=== PATIENT | male | born 1965 | race Caucasian/White ===

== ENCOUNTER 2017-04-15 11:11 | Inpatient (IN) | payer OTHER ==
[2017-04-15 18:40] VITALS: BMI 24.1
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
[2017-04-15] MEDS ORDERED: MAG HYDROX/AL HYDROX/SIMETH 30 ML UNIT-DOSE CUP PO PRN (20:41)
[2017-04-15] MEDS ORDERED: MAGNESIUM CITRATE 300 ML BOTTLE PO PRN (20:41)
[2017-04-15] MEDS ORDERED: guaiFENesin/D-METHORPHAN HB 10 ML UNIT-DOSE CUPS PO PRN (20:41)
[2017-04-15] MEDS ORDERED: diazePAM 5 MG TABLET PO ONE (20:41)
[2017-04-15] MEDS ORDERED: MAGNESIUM HYDROX 2400MG/30ML ORAL SUSPENSION 30 ML CUP PO PRN (20:41)
[2017-04-15] MEDS ORDERED: ACETAMINOPHEN 325 MG TABLET (FP) PO PRN (20:41)
[2017-04-15] MEDS ORDERED: diphenhydrAMINE HCL 50 MG CAPSULE PO PRN (20:41)
[2017-04-15] MEDS ORDERED: MENTHOL/PHENOL 1 EACH UD MM PRN (20:41)
[2017-04-15] MEDS ORDERED: LOPERAMIDE HCL 2 MG CAPSULE PO PRN (20:41)
[2017-04-15] MEDS ORDERED: P-EPHED 60MG/TRIPROLIDI 2.5MG TABLET PO PRN (20:41)
[2017-04-15] MEDS ORDERED: NICOTINE POLACRILEX 2 MG GUM BUC PRN (20:41)
[2017-04-15] MEDS ORDERED: cloNIDine HCL 0.1 MG TABLET PO PRN (20:45)
[2017-04-15] MEDS ORDERED: ALBUTEROL SO4 18 GM HFA INHALER IH PRN (20:50)
[2017-04-15] MEDS: THIAMINE HCL 100 MG TABLET (FP) PO SCH (22:30)
[2017-04-15] MEDS: INSULIN SLIDING SCALE (NOVOLOG) 1 VIAL SQ SCH (22:30)
[2017-04-15] MEDS: diazePAM 5 MG TABLET PO SCH (22:31)
[2017-04-15] MEDS: INSULIN DETEMIR 100 UNITS/ML MDV SQ SCH (22:32)
[2017-04-15] MEDS ORDERED: INSULIN (NOVOLOG) ASPART 100 UNITS/ML 10ML VIAL ONE (23:13)
[2017-04-15 23:35] LABS: URINE APPEARANCE CLEAR; URINE BILIRUBIN NEGATIVE (NEGATIVE); URINE BLOOD NEGATIVE (NEGATIVE); URINE COLOR LTYELLOW; URINE GLUCOSE (UA) 3+ (NEGATIVE); URINE KETONE NEGATIVE (NEGATIVE); URINE NITRITE NEGATIVE (NEGATIVE); URINE PROTEIN NEGATIVE (NEGATIVE); URINE UROBILINOGEN NEGATIVE mg/dL (0.2-1.0)
[2017-04-16] MEDS: diazePAM 5 MG TABLET PO SCH ×3 (05:43→22:36)
[2017-04-16] MEDS: metFORMIN HCL 500 MG TABLET (FP) PO SCH ×2 (06:33→17:31)
[2017-04-16] MEDS: INSULIN SLIDING SCALE (NOVOLOG) 1 VIAL SQ SCH ×4 (07:41→22:37)
[2017-04-16] MEDS ORDERED: METHADONE HCL 10 MG TABLET PO SCH (08:45)
[2017-04-16] MEDS: diazePAM 5 MG TABLET PO PRN (10:37)
[2017-04-16] MEDS: PRENATAL VITAMINS W/ FOLIC ACID TABLET (FP) PO SCH (10:37)
[2017-04-16] MEDS: NICOTINE 14 MG/24 HOURS TOPICAL PATCH TD SCH (10:37)
[2017-04-16] MEDS: ASPIRIN 81 MG CHEWABLE TABLETS PO SCH (10:37)
[2017-04-16 11:03] LABS: MCH 28.2 pg (25.7-33.7); MCHC 33.1 g/dl (32.0-35.9); MEAN CELL VOLUME 85.2 fl (80-96); MEAN PLT VOLUME 6.9 fl (7.5-11.1); PLATELET COUNT 255 K/MM3 (134-434); RDW 13.6 % (11.9-15.9); WHITE BLOOD COUNT 6.9 K/mm3 (4.0-10.0)
[2017-04-16 11:14] LABS: ALBUMIN 2.9 g/dl (3.4-5.0); ANION GAP 8 (8-16); CALCIUM 8.5 mg/dL (8.5-10.1); CO2 33 mmol/L (21-32); GLUCOSE,RANDOM 273 mg/dL (74-106)
[2017-04-16 11:18] LABS: ALK PHOS 125 U/L (45-117); BILIRUBIN,TOTAL 0.3 mg/dL (0.2-1.0); CREATININE 0.6 mg/dL (0.7-1.3); SGOT/AST 7 U/L (15-37); SGPT/ALT 17 U/L (12-78); TOT PROT 6.3 g/dl (6.4-8.2)
[2017-04-16 11:52] LABS: URINE LEUK ESTERASE Negative (NEGATIVE)
[2017-04-16] MEDS ORDERED: INSULIN (NOVOLOG) ASPART 100 UNITS/ML 10ML VIAL ONE ×3 (12:12→21:49)
--- NOTE | 2017-04-16 14:22 | CONSULT ---
[facility] Psychiatric Consult - Data Date of interview: 04/16/17 Admission source: [facility] Identifying data: First admission to [facility] for this 51 y/o male seeking detox teatment on for alcohol,cocaine,heroin and xanax dependence.Patient is single,a father of four,homeless,disabled and supported on SSD benefits. Substance Abuse History: Discussed with the patient.Addictions are confirmed. Smoking Cessation. Smoking history: Current every day smoker. Have you smoked in the past 12 months: Yes. Aproximately how many cigarettes per day: 5. Cigars Per Day: 0. Hx Chewing Tobacco Use: No. Initiated information on smoking cessation: Yes. 'Breaking Loose' booklet given: 04/15/17. - Substance & Tx. History. Hx Alcohol Use: Yes. Hx Substance Use: Yes. Substance Use Type : Alcohol, Cocaine, Heroin, Tranquilizers. Hx Substance Use Treatment: Yes ( 2014). - Substances Abused. Alprazolam (Xanax). Route: Oral. Frequency: Daily. Amount used: 2 MG. Age of first use: 47. Date of Last Use: 04/15/17. Alcohol. Route: Oral. Frequency: Daily. Amount used: 40OZX5 BEER. Age of first use: 18. Date of Last Use: 04/15/17 Medical History: Anemia,lower back pain,neuropathy,past history of withdrawal seizures,diabetes mellitus,COPD and dyslipidemia. Psychiatric History: No reported history of psychiatric hospitalizations.Mr Lara is currently on methadone maintenance at the [facility] (100 mg/ day).Prescibed xanax by a private psychiatrist based in the [place].Diagnosed with Anxiety Disorder.No history of suicide attempts. Physical/Sexual Abuse/Trauma History: No history. Additional Comment: Urine Drug Screen Results: EDIE-Cocaine, OPI-Opiates, BZO- Benzodiazepines, MTD-Methadone.Noted. Mental Status Exam - Mental Status Exam Alert and Oriented to: Time, Place, Person Cognitive Function: Good Patient Appearance: Well Groomed (tattoos on forearms) Mood: Hopeful, Euthymic Affect: Appropriate, Normal Range Patient Behavior: Fatigued, Cooperative Speech Pattern: Clear Voice Loudness: Normal Thought Process: Intact, Goal Oriented Thought Disorder: Not Present Hallucinations: Denies Suicidal Ideation: Denies Homicidal Ideation: Denies Insight/Judgement: Poor Sleep: Well Appetite: Good Gait/Station: Other (walks with a cane) Psychiatric Findings - Problem List ([place] 1, 2,3) (1) Alcohol dependence with uncomplicated withdrawal Current Visit: Yes Status: Acute (2) Opioid dependence on agonist therapy Current Visit: Yes Status: Acute (3) Cocaine dependence Current Visit: Yes Status: Acute (4) Benzodiazepine dependence Current Visit: Yes Status: Acute (5) Nicotine dependence Current Visit: Yes Status: Acute (6) Substance induced mood disorder Current Visit: Yes Status: Acute (7) Anemia Current Visit: Yes Status: Chronic Qualifiers: Anemia type: B12 deficiency Vitamin B12 deficiency anemia type: intrinsic factor deficiency Qualified Code(s): D51.0 - Vitamin B12 deficiency anemia due to intrinsic factor deficiency; D51.0 - Vitamin B12 deficiency anemia due to intrinsic factor deficiency Comment: VITAMIN B12 IM MONTHLY LAST IM 03/20/17 (8) COPD (chronic obstructive pulmonary disease) Current Visit: Yes Status: Chronic Qualifiers: COPD type: emphysema Emphysema type: unilateral Qualified Code(s ): J43.0 - Unilateral pulmonary emphysema [MacLeod's syndrome]; J43.0 - Unilateral pulmonary emphysema [MacLeod's syndrome]; J43.0 - Unilateral pulmonary emphysema [MacLeod's syndrome]; J43.0 - Unilateral pulmonary emphysema [MacLeod's syndrome] (9) Diabetes mellitus type II, non insulin dependent Current Visit: Yes Status: Chronic Comment: NONE COMPLIANCE MULTIPLE GLUCOSE SERUM ELEVATION (10) Hypertension Current Visit: Yes Status: Chronic Qualifiers: Hypertension type: essential hypertension Qualified Code(s): I10 - Essential (primary) hypertension; I10 - Essential (primary) hypertension; I10 - Essential (primary) hypertension (11) Neuropathy Current Visit: Yes Status: Chronic Comment: DIABETES NEUROPATHY (12) Use of cane as ambulatory aid Current Visit: Yes Status: Chronic - Initial Treatment Plan Initial Treatment Plan: Psychoeducation.Detoxification.Observation.
--- NOTE | 2017-04-16 19:44 | PN ---
[facility] CIWA - CIWA Score Nausea/Vomitin-No Nausea/No Vomiting Muscle Tremors: 3 Anxiety: 4-Mod. Anxious/Guarded Agitation: 3 Paroxysmal Sweats: No Perspiration Orientation: 4Disoriented Place/Person Tacttile Disturbances: 0-None Auditory Disturbances: 1-Very Mild Visual Disturbances: 2-Mild Sensitivity Headache: 0-None Present CIWA-Ar Total Score: 17 S Progress Note (SOAP) Subjective: Interrupted Sleep, Body Aches, Anxious, Tremors. Objective: PT. A & O X 2 (DISORIENTED ABOUT CURRENT LOCATION). PT. OBSERVED AMBULATING ON UNIT WITH ASSISTANCE OF A CANE. NO ACUTE DISTRESS. PT. DENIES CHEST PAIN. 04/16/17 19:40 Vital Signs Temperature 98.1 F 04/16/17 18:45 Pulse Rate 71 04/16/17 18:45 Respiratory Rate 19 04/16/17 18:45 Blood Pressure 162/80 04/16/17 18:45 O2 Sat by Pulse Oximetry (%) Laboratory Tests 04/15/17 04/15/17 04/16/17 22:29 23:00 05:44 WBC RBC Hgb Hct MCV MCH MCHC RDW Plt Count MPV Sodium Potassium Chloride Carbon Dioxide Anion Gap BUN Creatinine Creat Clearance w eGFR POC Glucometer 387 233 Random Glucose Calcium Total Bilirubin AST ALT Alkaline Phosphatase Total Protein Albumin Urine Color Ltyellow Urine Appearance Clear Urine pH 6.0 Ur Specific [place] 1.010 Urine Protein Negative Urine Glucose (UA) 3+ H Urine Ketones Negative Urine Blood Negative Urine Nitrite Negative Urine Bilirubin Negative Urine Urobilinogen Negative Ur Leukocyte Esterase Negative RPR Titer 04/16/17 04/16/17 04/16/17 08:00 08:00 08:00 WBC 6.9 RBC 4.70 Hgb 13.3 Hct 40.1 MCV 85.2 MCH 28.2 MCHC 33.1 RDW 13.6 Plt Count 255 MPV 6.9 L Sodium 141 Potassium 3.5 Chloride 100 Carbon Dioxide 33 H Anion Gap 8 BUN 8 Creatinine 0.6 L Creat Clearance w eGFR > 60 POC Glucometer Random Glucose 273 H Calcium 8.5 Total Bilirubin 0.3 AST 7 L ALT 17 Alkaline Phosphatase 125 H Total Protein 6.3 L Albumin 2.9 L Urine Color Urine Appearance Urine pH Ur Specific [place] Urine Protein Urine Glucose (UA) Urine Ketones Urine Blood Urine Nitrite Urine Bilirubin Urine Urobilinogen Ur Leukocyte Esterase RPR Titer Nonreactive 04/16/17 04/16/17 12:09 16:33 WBC RBC Hgb Hct MCV MCH MCHC RDW Plt Count MPV Sodium Potassium Chloride Carbon Dioxide Anion Gap BUN Creatinine Creat Clearance w eGFR POC Glucometer 388 313 Random Glucose Calcium Total Bilirubin AST ALT Alkaline Phosphatase Total Protein Albumin Urine Color Urine Appearance Urine pH Ur Specific [place] Urine Protein Urine Glucose (UA) Urine Ketones Urine Blood Urine Nitrite Urine Bilirubin Urine Urobilinogen Ur Leukocyte Esterase RPR Titer LABS NOTED. Assessment: 04/16/17 19:41 WITHDRAWAL SYMPTOMS. Plan: CONTINUE DETOX.
[2017-04-16] MEDS: THIAMINE HCL 100 MG TABLET (FP) PO SCH (22:36)
[2017-04-16] MEDS: INSULIN DETEMIR 100 UNITS/ML MDV SQ SCH (22:37)
[2017-04-17] MEDS ORDERED: METHADONE HCL 10 MG TABLET ONE (04:31)
[2017-04-17] MEDS ORDERED: METHADONE HCL 40 MG DISPERSABLE TABLET ONE (04:32)
[2017-04-17] MEDS: diazePAM 5 MG TABLET PO PRN (05:34)
[2017-04-17] MEDS: METHADONE 80 MG, METHADONE 20 MG PO SCH (05:34)
[2017-04-17] MEDS: INSULIN SLIDING SCALE (NOVOLOG) 1 VIAL SQ SCH ×4 (06:06→21:52)
[2017-04-17] MEDS: metFORMIN HCL 500 MG TABLET (FP) PO SCH ×2 (06:19→16:30)
[2017-04-17] MEDS: NICOTINE 14 MG/24 HOURS TOPICAL PATCH TD SCH (10:26)
[2017-04-17] MEDS: diazePAM 5 MG TABLET PO SCH ×2 (10:26→21:51)
[2017-04-17] MEDS: PRENATAL VITAMINS W/ FOLIC ACID TABLET (FP) PO SCH (10:26)
[2017-04-17] MEDS: ASPIRIN 81 MG CHEWABLE TABLETS PO SCH (10:26)
--- NOTE | 2017-04-17 11:42 | EKG ---
Test Reason : Blood Pressure : / mmHG Vent. Rate : 068 BPM Atrial Rate : 068 BPM P-R Int : 162 ms QRS Dur : 078 ms QT Int : 418 ms P-R-T Axes : 034 000 -07 degrees QTc Int : 444 ms SINUS RHYTHM WITH MARKED SINUS ARRHYTHMIA MODERATE VOLTAGE CRITERIA FOR LVH, MAY BE NORMAL VARIANT WHEN COMPARED WITH ECG OF 15-APR-2017 22:16, T WAVE AMPLITUDE HAS INCREASED IN ANTERIOR LEADS QT HAS SHORTENED Confirmed by LILLIAN ROLDAN MD ([id number]) on 04/17/2017 11:42:19 AM Referred By: Confirmed By:LILLIAN ROLDAN MD
--- NOTE | 2017-04-17 11:43 | EKG ---
Test Reason : Blood Pressure : / mmHG Vent. Rate : 075 BPM Atrial Rate : 075 BPM P-R Int : 174 ms QRS Dur : 082 ms QT Int : 444 ms P-R-T Axes : 066 010 006 degrees QTc Int : 495 ms NORMAL SINUS RHYTHM POSSIBLE LEFT ATRIAL ENLARGEMENT LEFT VENTRICULAR HYPERTROPHY PROLONGED QT ABNORMAL ECG NO PREVIOUS ECGS AVAILABLE Confirmed by LILLIAN ROLDAN MD ([id number]) on 04/17/2017 11:42:34 AM Referred By: Confirmed By:LILLIAN ROLDAN MD
[2017-04-17] MEDS ORDERED: INSULIN (NOVOLOG) ASPART 100 UNITS/ML 10ML VIAL ONE ×3 (12:16→21:46)
--- NOTE | 2017-04-17 13:59 | PN ---
[facility] CIWA - CIWA Score Nausea/Vomitin-No Nausea/No Vomiting Muscle Tremors: 4-Moderate,w/Arms Extend Anxiety: 4-Mod. Anxious/Guarded Agitation: 4-Moderately Restless Paroxysmal Sweats: 1-Minimal Palms Moist Orientation: 0-Oriented Tacttile Disturbances: 3-Moderate Itch/Numb/Burn Auditory Disturbances: 0-None Visual Disturbances: 0-None Headache: 0-None Present CIWA-Ar Total Score: 16 [facility] Progress Note (SOAP) Subjective: ANXIETY,SWEATS,IRRITABILITY,C/O HX NEUROPATHY LOWER LEGS. Objective: 04/17/17 13:58 Vital Signs Temperature 98.2 F 04/17/17 13:43 Pulse Rate 93 H 04/17/17 13:43 Respiratory Rate 20 04/17/17 13:43 Blood Pressure 174/91 04/17/17 13:43 O2 Sat by Pulse Oximetry (%) Laboratory Last Values WBC 6.9 K/mm3 (4.0-10.0) 04/16/17 08:00 RBC 4.70 M/mm3 (4.00-5.60) 04/16/17 08:00 Hgb 13.3 GM/dL (11.7-16.9) 04/16/17 08:00 Hct 40.1 % (35.4-49) 04/16/17 08:00 MCV 85.2 fl (80-96) 04/16/17 08:00 MCH 28.2 pg (25.7-33.7) 04/16/17 08:00 MCHC 33.1 g/dl (32.0-35.9) 04/16/17 08:00 RDW 13.6 % (11.9-15.9) 04/16/17 08:00 Plt Count 255 K/MM3 (134-434) 04/16/17 08:00 MPV 6.9 fl (7.5-11.1) L 04/16/17 08:00 Sodium 141 mmol/L (136-145) 04/16/17 08:00 Potassium 3.5 mmol/L (3.5-5.1) 04/16/17 08:00 Chloride 100 mmol/L (98-107) 04/16/17 08:00 Carbon Dioxide 33 mmol/L (21-32) H 04/16/17 08:00 Anion Gap 8 (8-16) 04/16/17 08:00 BUN 8 mg/dL (7-18) 04/16/17 08:00 Creatinine 0.6 mg/dL (0.7-1.3) L 04/16/17 08:00 Creat Clearance w eGFR > 60 (>60) 04/16/17 08:00 POC Glucometer 335 UNITS (()) 04/17/17 12:13 Random Glucose 273 mg/dL (74-106) H 04/16/17 08:00 Calcium 8.5 mg/dL (8.5-10.1) 04/16/17 08:00 Total Bilirubin 0.3 mg/dL (0.2-1.0) 04/16/17 08:00 AST 7 U/L (15-37) L 04/16/17 08:00 ALT 17 U/L (12-78) 04/16/17 08:00 Alkaline Phosphatase 125 U/L (45-117) H 04/16/17 08:00 Total Protein 6.3 g/dl (6.4-8.2) L 04/16/17 08:00 Albumin 2.9 g/dl (3.4-5.0) L 04/16/17 08:00 Urine Color Ltyellow 04/15/17 23:00 Urine Appearance Clear 04/15/17 23:00 Urine pH 6.0 (5.0-8.0) 04/15/17 23:00 Ur Specific [place] 1.010 (1.005-1.025) 04/15/17 23:00 Urine Protein Negative (NEGATIVE) 04/15/17 23:00 Urine Glucose (UA) 3+ (NEGATIVE) H 04/15/17 23:00 Urine Ketones Negative (NEGATIVE) 04/15/17 23:00 Urine Blood Negative (NEGATIVE) 04/15/17 23:00 Urine Nitrite Negative (NEGATIVE) 04/15/17 23:00 Urine Bilirubin Negative (NEGATIVE) 04/15/17 23:00 Urine Urobilinogen Negative mg/dL (0.2-1.0) 04/15/17 23:00 Ur Leukocyte Esterase Negative (NEGATIVE) 04/15/17 23:00 RPR Titer Nonreactive (NONREACTIVE) 04/16/17 08:00 Assessment: 04/17/17 13:58 WITHDRAWAL SX Plan: CONTINUE DETOX
[2017-04-17] MEDS ORDERED: cloNIDine HCL 0.1 MG TABLET PO PRN (14:08)
[2017-04-17] MEDS: THIAMINE HCL 100 MG TABLET (FP) PO SCH (21:51)
[2017-04-17] MEDS: INSULIN DETEMIR 100 UNITS/ML MDV SQ SCH (21:55)
[2017-04-17] MEDS ORDERED: ENALAPRIL MALEATE 10 MG TABLET (FP) PO SCH (22:00)
[2017-04-18] MEDS ORDERED: METHADONE HCL 40 MG DISPERSABLE TABLET ONE (04:06)
[2017-04-18] MEDS ORDERED: METHADONE HCL 10 MG TABLET ONE (04:06)
[2017-04-18] MEDS: METHADONE 80 MG, METHADONE 20 MG PO SCH (05:28)
[2017-04-18] MEDS: INSULIN SLIDING SCALE (NOVOLOG) 1 VIAL SQ SCH (06:20)
[2017-04-18] MEDS: metFORMIN HCL 500 MG TABLET (FP) PO SCH (06:21)
--- NOTE | 2017-04-18 09:16 | DS ---
[facility] Detox Discharge Summary Admission Date: 04/15/17 Discharge Date: 04/18/17 - History Additional Comments: PT DECLINED TO CONTINUE WITH DETOX DESPITE ALL EFFORTS TO ENCOURAGE TREATMENT STATING "I HAVE THINGS TO DO". ALERT O X 3. NAD. Pertinent Past History: ANEMIA COPD HTN DM NEUROPATHY USE OF CANE AMBULATORY AID - Physical Exam Results Vital Signs: Vital Signs Temperature 97.9 F 04/18/17 06:35 Pulse Rate 88 04/18/17 06:35 Respiratory Rate 18 04/18/17 06:35 Blood Pressure 142/89 04/18/17 06:35 O2 Sat by Pulse Oximetry (%) Pertinent Admission Physical Exam Findings: WITHDRAWAL SX Laboratory Last Values WBC 6.9 K/mm3 (4.0-10.0) 04/16/17 08:00 RBC 4.70 M/mm3 (4.00-5.60) 04/16/17 08:00 Hgb 13.3 GM/dL (11.7-16.9) 04/16/17 08:00 Hct 40.1 % (35.4-49) 04/16/17 08:00 MCV 85.2 fl (80-96) 04/16/17 08:00 MCH 28.2 pg (25.7-33.7) 04/16/17 08:00 MCHC 33.1 g/dl (32.0-35.9) 04/16/17 08:00 RDW 13.6 % (11.9-15.9) 04/16/17 08:00 Plt Count 255 K/MM3 (134-434) 04/16/17 08:00 MPV 6.9 fl (7.5-11.1) L 04/16/17 08:00 Sodium 141 mmol/L (136-145) 04/16/17 08:00 Potassium 3.5 mmol/L (3.5-5.1) 04/16/17 08:00 Chloride 100 mmol/L (98-107) 04/16/17 08:00 Carbon Dioxide 33 mmol/L (21-32) H 04/16/17 08:00 Anion Gap 8 (8-16) 04/16/17 08:00 BUN 8 mg/dL (7-18) 04/16/17 08:00 Creatinine 0.6 mg/dL (0.7-1.3) L 04/16/17 08:00 Creat Clearance w eGFR > 60 (>60) 04/16/17 08:00 POC Glucometer 144 UNITS (()) 04/18/17 05:26 Random Glucose 273 mg/dL (74-106) H 04/16/17 08:00 Calcium 8.5 mg/dL (8.5-10.1) 04/16/17 08:00 Total Bilirubin 0.3 mg/dL (0.2-1.0) 04/16/17 08:00 AST 7 U/L (15-37) L 04/16/17 08:00 ALT 17 U/L (12-78) 04/16/17 08:00 Alkaline Phosphatase 125 U/L (45-117) H 04/16/17 08:00 Total Protein 6.3 g/dl (6.4-8.2) L 04/16/17 08:00 Albumin 2.9 g/dl (3.4-5.0) L 04/16/17 08:00 Urine Color Ltyellow 04/15/17 23:00 Urine Appearance Clear 04/15/17 23:00 Urine pH 6.0 (5.0-8.0) 04/15/17 23:00 Ur Specific [place] 1.010 (1.005-1.025) 04/15/17 23:00 Urine Protein Negative (NEGATIVE) 04/15/17 23:00 Urine Glucose (UA) 3+ (NEGATIVE) H 04/15/17 23:00 Urine Ketones Negative (NEGATIVE) 04/15/17 23:00 Urine Blood Negative (NEGATIVE) 04/15/17 23:00 Urine Nitrite Negative (NEGATIVE) 04/15/17 23:00 Urine Bilirubin Negative (NEGATIVE) 04/15/17 23:00 Urine Urobilinogen Negative mg/dL (0.2-1.0) 04/15/17 23:00 Ur Leukocyte Esterase Negative (NEGATIVE) 04/15/17 23:00 RPR Titer Nonreactive (NONREACTIVE) 04/16/17 08:00 - Treatment Hospital Course: Discharged Condition Good - Medication Discharge Medications: Ambulatory Orders Aspirin [ASA -] 81 mg PO DAILY 04/15/17 Clonidine HCl [Catapres -] 0.3 mg PO DAILY 04/15/17 Metformin HCl [Glucophage -] 1,000 mg PO BID 04/15/17 Enalapril/Hydrochlorothiazide [Vaseretic 10-25 mg Tablet] 1 tab PO DAILY - Diagnosis (1) Alcohol dependence with uncomplicated withdrawal Current Visit: Yes Status: Acute (2) COPD (chronic obstructive pulmonary disease) Current Visit: Yes Status: Chronic Qualifiers: COPD type: emphysema Emphysema type: unilateral Qualified Code(s ): J43.0 - Unilateral pulmonary emphysema [MacLeod's syndrome]; J43.0 - Unilateral pulmonary emphysema [MacLeod's syndrome]; J43.0 - Unilateral pulmonary emphysema [MacLeod's syndrome]; J43.0 - Unilateral pulmonary emphysema [MacLeod's syndrome] (3) Diabetes mellitus type II, non insulin dependent Current Visit: Yes Status: Chronic (4) Hypertension Current Visit: Yes Status: Chronic Qualifiers: Hypertension type: essential hypertension Qualified Code(s): I10 - Essential (primary) hypertension; I10 - Essential (primary) hypertension; I10 - Essential (primary) hypertension (5) Neuropathy Current Visit: Yes Status: Chronic (6) Use of cane as ambulatory aid Current Visit: Yes Status: Chronic - AMA Did Patient Leave Against Medical Advice: Yes (AMA)
[2017-04-18 09:56] VITALS: BP 162/86; PULSE 89; TEMP 97
[2017-04-18] MEDS ORDERED: amLODIPine BESYLATE 10 MG TABLET (FP) PO SCH (10:00)
[2017-04-18] MEDS ORDERED: ENALAPRIL MALEATE 10 MG TABLET (FP) PO SCH (10:00)
[2017-04-18] MEDS ORDERED: HYDROCHLOROTHIAZIDE 25 MG TABLET (FP) PO SCH (10:00)
[2017-04-19] MEDS ORDERED: diazePAM 5 MG TABLET PO SCH (10:00)
== END 2017-04-18 09:33 | disposition left against medical advice (07) | DRG 770 ==
LOC: YASAS 11:11 → Y3N 21:05
PROVIDERS: ADMIT Internal Medicine; ATTEND Internal Medicine
PROC: HZ2ZZZZ Detoxification Services for Substance Abuse Treatment (ICD-10-PCS; principal; 2017-04-14)
DX: F11.20 Opioid dependence, uncomplicated (principal); F10.230 Alcohol dependence with withdrawal, uncomplicated; F14.20 Cocaine dependence, uncomplicated; F17.210 Nicotine dependence, cigarettes, uncomplicated; F19.24 Other psychoactive substance dependence with psychoactive substance-induced mood disorder; I10 Essential (primary) hypertension; J43.0 Unilateral pulmonary emphysema [MacLeod's syndrome]; E11.9 Type 2 diabetes mellitus without complications; Z79.84 Long term (current) use of oral hypoglycemic drugs; D51.0 Vitamin B12 deficiency anemia due to intrinsic factor deficiency; G62.9 Polyneuropathy, unspecified; R26.89 Other abnormalities of gait and mobility; Z99.89 Dependence on other enabling machines and devices
CPT/HCPCS: 36415; 80053; 81003; 85027; 86593; 93005; 93010

== ENCOUNTER 2019-04-11 11:16 | Inpatient (IN) | payer OTHER ==
[2019-04-11 12:31] VITALS: BMI 31.6
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
--- NOTE | 2019-04-11 21:26 | HP ---
CIWA Score Nausea/Vomitin-No Nausea/No Vomiting Muscle Tremors: None Anxiety: 1-Mildly Anxious Agitation: 1-Slight > Activity Paroxysmal Sweats: 3 Orientation: 3-Disoriented Date>2 days Tacttile Disturbances: 2-Mild Itch/Numbness/Burn Auditory Disturbances: 0-None Visual Disturbances: 0-None Headache: 4-Moderately Severe CIWA-Ar Total Score: 14 - Admission Criteria OASAS Guidelines: Admission for Medically Managed Detox: Requires at least one of the followin. CIWA greater than 12 2. Seizures within the past 24 hours 3. Delirium tremens within the past 24 hours 4. Hallucinations within the past 24 hours 5. Acute intervention needed for co occurring medical disorder 6. Acute intervention needed for co occurring psychiatric disorder 7. Severe withdrawal that cannot be handled at a lower level of care (continued vomiting, continued diarrhea, abnormal vital signs) requiring intravenous medication and/or fluids 8. Patient presents the following: CIWA greater than 12 Admission Criteria Met: Admission criteria met Admitting History and Physical - Smoking History Smoking history: Current every day smoker Have you smoked in the past 12 months: Yes Aproximately how many cigarettes per day: 5 - Alcohol/Substance Use Hx Alcohol Use: Yes Admission ROS [facility] Chief Complaint: SEEKING DETOX FROM [facility] Allergies/Adverse Reactions: Allergies Allergy/AdvReac Type Severity Reaction Status Date / Time No Known Allergies Allergy Verified 04/15/17 20:14 History of Present Illness: HERE FOR [facility] DETOX. CLIENT I REFERRED BY HIS OUTPATIENT CLINIC MERGED WITH [facility] WHERE HE IS ON METHADONE. CLIENT REPORTS LDM TODAY 100MG. HE RETURNS FROM [facility] AFTER BEING SENT THERE FOR R/O NEW CVA AND HEAD CT FOR RECENT FALL SUSTAINING AN ABRASION TO HIS FACE.HE HAS SINCE BEEN CLEARED . NEGATIVE HEAD CT NOTED. HE PRESENTS A/O X3 WITH SLURRED SPEECH R/T HX/O OLD CVA WITH RIGHT SIDED WEAKNESS AMBUATES WITH CANE. PRESENTS WITH C/O WITHDRAWAL SX'S. + CIWA, + HX/O BLACK OUTS. HE REPORTS DAILY XANAX USE AND ONGOING HEROIN USE. DENIES HX/O DRUG OVERDOSE, SEIZURES, IVDU AVH. REPORTS LONGEST CLEAN TIME 3 YEARS. DENIES ANY IN THE PAST YEAR. HOMELESS, UNEMPLOYED, DENIES LEGALS. Exam Limitations: Clinical Condition (PERIODS OF DROWSINESS BUT AROUSABLE), Physical Impairment (RIGHT SIDED WEAKNESS,) - Ebola screening Have you traveled outside of the country in the last 21 days: No Have you had contact with anyone from an Ebola affected area: No Have you been sick,other than usual withdrawal symptoms: No Do you have a fever: No - Review of Systems Constitutional: Chills, Loss of Appetite, Malaise, Night Sweats EENT: reports: Dental Problems (MISSING TEETH/ PARTIAL DENTURES) Respiratory: reports: No Symptoms reported Cardiac: reports: No Symptoms Reported GI: reports: Poor Appetite, Poor Fluid Intake : reports: No Symptoms Reported Musculoskeletal: reports: Back Pain, Joint Pain Integumentary: reports: No Symptoms Reported Neuro: reports: Headache (HX/O), Numbness (CHRONIC), Unsteady Gait (R/T CVA W/ RIGHT SIDED WEAKNESS), Other (BLACK OUTS) Endocrine: reports: Other ( DM ON MEDS) Hematology: reports: No Symptoms Reported Psychiatric: reports: Anxious, Depressed (DENIES SI/HI) Other Systems: Reviewed and Negative Patient History - Patient Medical History Hx Anemia: Yes Hx Asthma: No Hx Chronic Obstructive Pulmonary Disease (COPD): Yes Hx Cancer: No Hx Cardiac Disorders: No Hx Congestive Heart Failure: No Hx Hypertension: Yes Hx Hypercholesterolemia: Yes Hx Pacemaker: No HX Cerebrovascular Accident: Yes (2018 W/ RIGHT SIDED WEAKNESS) Hx Seizures: No Hx Dementia: No Hx Diabetes: Yes Hx Gastrointestinal Disorders: No Hx Liver Disease: No Hx Genitourinary Disorders: No Hx Sexually Transmitted Disorders: No Hx Renal Disease (ESRD): No Hx Thyroid Disease: No Hx Human Immunodeficiency Virus (HIV): No Hx Hepatitis C: No Hx Depression: Yes Hx Suicide Attempt: No Hx Bipolar Disorder: No Hx Schizophrenia: No - Patient Surgical History Past Surgical History: No Hx Neurologic Surgery: No Hx Cataract Extraction: No Hx Cardiac Surgery: No Hx Lung Surgery: No Hx Breast Surgery: No Hx Breast Biopsy: No Hx Abdominal Surgery: No Hx Appendectomy: No Hx Cholecystectomy: No Hx Genitourinary Surgery: No Hx Section: No Hx Orthopedic Surgery: No Anesthesia Reaction: No - PPD History Previous Implant?: Yes Documented Results: Negative w/proof Implanted On Prior R Admission?: Yes Date: 04/17/17 Results: 0MM PPD to be Administered?: Yes - Smoking Cessation Smoking history: Current every day smoker Have you smoked in the past 12 months: Yes Aproximately how many cigarettes per day: 5 Cigars Per Day: 0 Hx Chewing Tobacco Use: No Initiated information on smoking cessation: Yes 'Breaking Loose' booklet given: 04/11/19 - Substance & Tx. History Hx Alcohol Use: No Hx Substance Use: Yes Substance Use Type: Opiates, Prescribed (MTD), Tranquilizers (XANAX) Hx Substance Use Treatment: Yes ([facility]) - Substances abused Heroin Substance route: Inhalation Frequency: Daily Amount used: 3 bags Age of first use: 18 Date of last use: 04/11/19 Alcohol Substance route: Oral Frequency: 1-2 times per week Amount used: 2 22 oz beers Age of first use: 20 Date of last use: 04/10/19 Alprazolam (Xanax) Substance route: Oral Frequency: Daily Amount used: 6mg Age of first use: 50 Date of last use: 04/11/19 Admission Physical Exam S - Vital Signs Vital Signs: Vital Signs - 24 hr 04/11/19 04/11/19 12:18 20:53 Temperature 97.1 F L 96.8 F L Pulse Rate 68 64 Respiratory 18 18 Rate Blood Pressure 182/88 H 157/86 - Physical General Appearance: Yes: Mild Distress, Obese (DROWSINESS) HEENTM: Yes: Normocephalic, Normal Voice, MARSHA, Pharynx Normal, Other (MISSING TEETH/POOR DENTITION) Respiratory: Yes: Chest Non-Tender, Lungs Clear, Normal Breath Sounds, No Respiratory Distress, No Accessory Muscle Use Neck: Yes: No masses,lesions,Nodules, Supple, Trachea in good position Breast: Yes: Breasts Symetrical, No Discharge Cardiology: Yes: Regular Rhythm, Regular Rate, S1, S2 Abdominal: Yes: Normal Bowel Sounds, Non Tender, Soft, Protuberent Genitourinary: Yes: Within Normal Limits Back: Yes: Normal Inspection Musculoskeletal: Yes: Other (UNSTEADY GAIT AND BALANCE. AMBUALTES W/ WALKER) Extremities: Yes: Non-Tender, Tremors, Coldness (BLE) Neurological: Yes: Alert (WITH PERIODS OF DROWSINESS), Numbness (REPORTED TO BLE ), Depressed Affect, Other (SLURRED SPEECH RIGHT SIDED WEAKNESS) Integumentary: Yes: Dry, Cold Lymphatic: Yes: Within Normal Limits - Diagnostic (1) HLD (hyperlipidemia) Current Visit: Yes Status: Chronic Qualifiers: Hyperlipidemia type: unspecified Qualified Code(s): E78.5 - Hyperlipidemia , unspecified (2) Sedative, hypnotic or anxiolytic dependence with withdrawal, uncomplicated Current Visit: Yes Status: Acute (3) CVA, old, aphasia Current Visit: Yes Status: Chronic (4) Right sided weakness Current Visit: Yes Status: Chronic Comment: CVA (5) Facial abrasion Current Visit: Yes Status: Acute Qualifiers: Encounter type: subsequent encounter Qualified Code(s): S00.81XD - Abrasion of other part of head, subsequent encounter (6) Nicotine dependence Current Visit: Yes Status: Chronic Qualifiers: Nicotine product type: cigarettes Substance use status: uncomplicated Qualified Code(s): F17.210 - Nicotine dependence, cigarettes, uncomplicated (7) Substance induced mood disorder Current Visit: Yes Status: Suspected (8) COPD (chronic obstructive pulmonary disease) Current Visit: Yes Status: Chronic Qualifiers: Emphysema type: unspecified (9) Diabetes mellitus type II, non insulin dependent Current Visit: Yes Status: Chronic (10) Hypertension Current Visit: Yes Status: Chronic Qualifiers: Hypertension type: essential hypertension Qualified Code(s): I10 - Essential (primary) hypertension (11) Methadone maintenance therapy patient Current Visit: Yes Status: Chronic (12) Neuropathy Current Visit: Yes Status: Chronic Comment: DIABETES NEUROPATHY (13) Use of cane as ambulatory aid Current Visit: Yes Status: Chronic (14) Non compliance w medication regimen Current Visit: Yes Status: Chronic Comment: CLIENT DOES DOES NOT TAKE RX LISINOPRIL/ ISORSIBIDE Cleared for Admission [facility] - Detox or Rehab [facility] Level of Care: Medically Managed Detox Regimen/Protocol: Valium Claeared for Rehab Admission: No Breathalyzer - Breathalyzer Breathalyzer: 0 Inpatient Rehab Admission - Rehab Decision to Admit Inpatient rehab admission?: No
[2019-04-11] MEDS ORDERED: DICYCLOMINE HCL 10 MG CAPSULE PO PRN (21:44)
[2019-04-11] MEDS ORDERED: NICOTINE POLACRILEX 2 MG GUM BUC PRN (21:44)
[2019-04-11] MEDS ORDERED: P-EPHED 60MG/TRIPROLIDI 2.5MG TABLET PO PRN (21:44)
[2019-04-11] MEDS ORDERED: ACETAMINOPHEN 325 MG TABLET (FP) PO PRN ×2 (21:44)
[2019-04-11] MEDS ORDERED: MAG HYDROX/AL HYDROX/SIMETH 30 ML UNIT-DOSE CUP PO PRN (21:44)
[2019-04-11] MEDS ORDERED: hydrOXYzine PAMOATE 25 MG CAPSULE (FP) PO PRN (21:44)
[2019-04-11] MEDS ORDERED: BISMUTH SUBSALICYLATE 524 MG/30 ML UD PO PRN (21:44)
[2019-04-11] MEDS ORDERED: IBUPROFEN 400 MG TABLET (FP) PO PRN (21:44)
[2019-04-11] MEDS ORDERED: MAGNESIUM HYDROX 2400MG/30ML ORAL SUSPENSION 30 ML CUP PO PRN (21:44)
[2019-04-11] MEDS ORDERED: MENTHOL/PHENOL 1 EACH UD MM PRN (21:44)
[2019-04-11] MEDS ORDERED: ONDANSETRON *ODT* 4 MG TABLET SL PRN (21:44)
[2019-04-11] MEDS ORDERED: guaiFENesin 200 MG/10 ML 10 ML UNIT-DOSE CUPS PO PRN (21:44)
[2019-04-11] MEDS ORDERED: MAGNESIUM CITRATE 300 ML BOTTLE PO PRN (21:44)
[2019-04-11] MEDS ORDERED: METHOCARBAMOL 500 MG TABLET PO PRN (21:44)
[2019-04-11] MEDS: BACITRACIN 15 GM TUBE TOPICAL OINTMENT TP SCH (23:14)
[2019-04-11] MEDS: INSULIN (LEVEMIR) 100 UNITS/ML UNITS SQ SCH (23:14)
[2019-04-11] MEDS: THIAMINE HCL 100 MG TABLET (FP) PO SCH (23:15)
[2019-04-12] MEDS: metFORMIN HCL 500 MG TABLET (FP) PO SCH ×2 (06:10→17:30)
[2019-04-12] MEDS: diazePAM 5 MG TABLET PO SCH ×3 (06:28→22:19)
[2019-04-12] MEDS: INSULIN SLIDING SCALE (NOVOLOG) 1 VIAL SQ SCH ×3 (07:48→17:31)
[2019-04-12] MEDS: diazePAM 5 MG TABLET PO PRN (08:39)
[2019-04-12] MEDS: PRENATAL VITAMINS W/ FOLIC ACID TABLET (FP) PO SCH (10:18)
[2019-04-12] MEDS: ASPIRIN 81 MG CHEWABLE TABLETS PO SCH (10:18)
[2019-04-12] MEDS: NICOTINE 14 MG/24 HOURS TOPICAL PATCH TD SCH (10:18)
[2019-04-12] MEDS: BACITRACIN 15 GM TUBE TOPICAL OINTMENT TP SCH (10:19)
[2019-04-12] MEDS ORDERED: METHADONE HCL 10 MG TABLET PO SCH (11:45)
[2019-04-12] MEDS ORDERED: METHADONE HCL 10 MG TABLET ONE (11:53)
[2019-04-12] MEDS ORDERED: METHADONE HCL 40 MG DISPERSABLE TABLET ONE (11:53)
[2019-04-12] MEDS: METHADONE 80 MG, METHADONE 20 MG PO SCH (11:56)
--- NOTE | 2019-04-12 12:21 | EKG ---
Test Reason : Blood Pressure : / mmHG Vent. Rate : 062 BPM Atrial Rate : 062 BPM P-R Int : 194 ms QRS Dur : 080 ms QT Int : 478 ms P-R-T Axes : 068 001 001 degrees QTc Int : 485 ms NORMAL SINUS RHYTHM MINIMAL VOLTAGE CRITERIA FOR LVH, MAY BE NORMAL VARIANT PROLONGED QT ABNORMAL ECG WHEN COMPARED WITH ECG OF 16-APR-2017 11:26, NO SIGNIFICANT CHANGE WAS FOUND Confirmed by ROGER WILLIAMSON, JAMES ([id number]) on 04/12/2019 12:21:27 PM Referred By: Confirmed By:JAMES DURAN MD
--- NOTE | 2019-04-12 13:19 | CONSULT ---
[facility] Psychiatric Consult - Data Date of interview: 04/12/19 Admission source: [facility] Identifying data: Patient is a 53 year old single male, father of four, domiciled, and currently unemployed. This is one of multiple admissions for patient. Patient admitted to for alcohol dependence. Substance Abuse History: - Smoking Cessation. Smoking history: Current every day smoker. Have you smoked in the past 12 months: Yes. Aproximately how many cigarettes per day: 5. Cigars Per Day: 0. Hx Chewing Tobacco Use: No. Initiated information on smoking cessation: Yes. 'Breaking Loose' booklet given : 04/11/19. - Substance & Tx. History. Hx Alcohol Use: No. Hx Substance Use: Yes. Substance Use Type: Opiates, Prescribed (MTD), Tranquilizers (XANAX). Hx Substance Use Treatment: Yes ([facility]). - Substances abused. Heroin. Substance route: Inhalation. Frequency: Daily. Amount used: 3 bags. Age of first use: 18. Date of last use: 04/11/19. Alcohol. Substance route: Oral. Frequency: 1-2 times per week. Amount used: 2 22 oz beers. Age of first use: 20. Date of last use: 04/10/19. Alprazolam (Xanax). Substance route: Oral. Frequency: Daily. Amount used: 6mg. Age of first use: 50. Date of last use: 04/11/19 Medical History: Anemia,lower back pain,neuropathy,diabetes mellitus,COPD dyslipidemia, CVA with right sided weakness (2018) Psychiatric History: Patient denies history of psychiatic hospitalization and suicide attempt. He reports receiving psychiatric care at [facility] in the past. Patient is lethargic and is unable to provide a cohesive psychiatric history. Patient denies current outpatient psychiatric care. Physical/Sexual Abuse/Trauma History: denies. Additional Comment: Patient is on methadone 100mg Mental Status Exam - Mental Status Exam Alert and Oriented to: Time, Place, Person Cognitive Function: Good Patient Appearance: Well Groomed Mood: Withdrawn Affect: Mood Congruent Patient Behavior: Fatigued Speech Pattern: Delayed Voice Loudness: Moderately Soft/Quiet Thought Process: Goal Oriented Thought Disorder: Not Present Hallucinations: Denies Suicidal Ideation: Denies Homicidal Ideation: Denies Insight/Judgement: Poor Sleep: Fair Appetite: Fair Muscle strength/Tone: Normal Gait/Station: Other (Patient ambulates with a cane.) Psychiatric Findings - Problem List ([place] 1, 2,3) (1) Substance induced mood disorder Current Visit: No Status: Acute (2) Methadone maintenance therapy patient Current Visit: Yes Status: Chronic (3) Sedative, hypnotic or anxiolytic dependence with withdrawal, uncomplicated Current Visit: Yes Status: Acute - Initial Treatment Plan Initial Treatment Plan: Psychoeducation provided. Detoxification in progress. Observation.
--- NOTE | 2019-04-12 16:27 | PN ---
[facility] CIWA - CIWA Score Nausea/Vomitin-No Nausea/No Vomiting Muscle Tremors: None Anxiety: 3 Agitation: 2 Paroxysmal Sweats: 2 Orientation: 0-Oriented Tacttile Disturbances: 0-None Auditory Disturbances: 2-Mild Harshness/Frighten Visual Disturbances: 2-Mild Sensitivity Headache: 0-None Present CIWA-Ar Total Score: 11 S Progress Note (SOAP) Subjective: Anxious, Sweating, Fatigue. Objective: PATIENT A & O X 3, OBSERVED AMBULATING ON DETOX UNIT WITH ASSISTANCE OF A CANE. IN NO ACUTE DISTRESS. 04/12/19 16:26 Vital Signs Temperature 97.4 F L 04/12/19 09:05 Pulse Rate 83 04/12/19 09:05 Respiratory Rate 18 04/12/19 09:05 Blood Pressure 100/65 04/12/19 09:05 O2 Sat by Pulse Oximetry (%) Laboratory Tests 04/11/19 04/11/19 04/11/19 12:36 21:55 22:45 POC Glucometer 360 378 322 04/12/19 04/12/19 06:25 11:34 POC Glucometer 173 103 RESULTS OF ADMISSION LABS NOTED. Assessment: 04/12/19 16:27 WITHDRAWAL SYMPTOMS. ELEVATED ALKALINE PHOSPHATASE LEVEL. Plan: CONTINUE DETOX.
[2019-04-12] MEDS: THIAMINE HCL 100 MG TABLET (FP) PO SCH (22:19)
[2019-04-12] MEDS: MELATONIN 5 MG TABLETS PO PRN (22:19)
[2019-04-12] MEDS: INSULIN (LEVEMIR) 100 UNITS/ML UNITS SQ SCH (22:20)
[2019-04-13] MEDS ORDERED: METHADONE HCL 10 MG TABLET ONE (04:11)
[2019-04-13] MEDS ORDERED: METHADONE HCL 40 MG DISPERSABLE TABLET ONE (04:12)
[2019-04-13] MEDS: metFORMIN HCL 500 MG TABLET (FP) PO SCH ×2 (06:27→17:30)
[2019-04-13] MEDS: METHADONE 80 MG, METHADONE 20 MG PO SCH (06:27)
[2019-04-13] MEDS: diazePAM 5 MG TABLET PO SCH ×2 (06:28→17:31)
[2019-04-13] MEDS: INSULIN SLIDING SCALE (NOVOLOG) 1 VIAL SQ SCH ×3 (07:56→17:31)
[2019-04-13] MEDS: diazePAM 5 MG TABLET PO PRN (08:16)
[2019-04-13] MEDS: ASPIRIN 81 MG CHEWABLE TABLETS PO SCH (10:22)
[2019-04-13] MEDS: BACITRACIN 15 GM TUBE TOPICAL OINTMENT TP SCH (10:22)
[2019-04-13] MEDS: NICOTINE 14 MG/24 HOURS TOPICAL PATCH TD SCH (10:22)
[2019-04-13] MEDS: PRENATAL VITAMINS W/ FOLIC ACID TABLET (FP) PO SCH (10:22)
--- NOTE | 2019-04-13 16:24 | PN ---
[facility] CIWA - CIWA Score Nausea/Vomitin-No Nausea/No Vomiting Muscle Tremors: None Anxiety: 2 Agitation: 2 Paroxysmal Sweats: 3 Orientation: 0-Oriented Tacttile Disturbances: 1-Very Mild Itch/Numbness Auditory Disturbances: 0-None Visual Disturbances: 2-Mild Sensitivity Headache: 0-None Present CIWA-Ar Total Score: 10 S Progress Note (SOAP) Subjective: Anxious, Sweating, Fatigue. Patient reports That Current withdrawal Detox Symptoms in General Are Gradually Beginning to Diminish in Severity. Objective: PATIENT A & O X 3, OBSERVED AMBULATING ON DETOX UNIT WITH ASSISTANCE OF A CANE. IN NO ACUTE DISTRESS. 04/13/19 16:23 Vital Signs Temperature 97.5 F L 04/13/19 13:46 Pulse Rate 117 H 04/13/19 13:46 Respiratory Rate 20 04/13/19 13:46 Blood Pressure 161/94 04/13/19 13:46 O2 Sat by Pulse Oximetry (%) Laboratory Tests 04/11/19 04/11/19 04/11/19 12:36 21:55 22:45 POC Glucometer 360 378 322 RPR Titer 04/12/19 04/12/19 04/12/19 06:25 08:10 11:34 POC Glucometer 173 103 RPR Titer Nonreactive 04/12/19 04/12/19 04/13/19 16:31 20:57 06:26 POC Glucometer 349 114 151 RPR Titer 04/13/19 11:37 POC Glucometer 125 RPR Titer RESULTS OF ADMISSION LABS NOTED. 04/13/19 16:24 Assessment: 04/13/19 16:24 WITHDRAWAL SYMPTOMS. ELEVATED ALKALINE PHOSPHATASE LEVEL. Plan: CONTINUE DETOX. PATIENT SCHEDULED FOR DISCHARGE FROM DETOX UNIT TOMORROW.
[2019-04-13] MEDS ORDERED: cloNIDine HCL 0.1 MG TABLET PO ONE (19:37)
[2019-04-13] MEDS: THIAMINE HCL 100 MG TABLET (FP) PO SCH (22:16)
[2019-04-13] MEDS: MELATONIN 5 MG TABLETS PO PRN (22:18)
[2019-04-13] MEDS ORDERED: INSULIN (LEVEMIR) 100 UNITS/ML UNITS SQ ONE (22:22)
[2019-04-13] MEDS: INSULIN (LEVEMIR) 100 UNITS/ML UNITS SQ SCH (22:57)
[2019-04-14] MEDS ORDERED: METHADONE HCL 10 MG TABLET ONE (05:02)
[2019-04-14] MEDS ORDERED: METHADONE HCL 40 MG DISPERSABLE TABLET ONE (05:03)
[2019-04-14] MEDS: METHADONE 80 MG, METHADONE 20 MG PO SCH (05:36)
[2019-04-14] MEDS ORDERED: diazePAM 5 MG TABLET PO ONE (06:00)
[2019-04-14 06:38] VITALS: BP 199/89; PULSE 124; TEMP 97.5
[2019-04-14] MEDS: metFORMIN HCL 500 MG TABLET (FP) PO SCH (06:40)
[2019-04-14] MEDS: INSULIN SLIDING SCALE (NOVOLOG) 1 VIAL SQ SCH (07:41)
== END 2019-04-14 07:05 | disposition home or self-care (01) | DRG 773 ==
LOC: YASAS 11:16 → Y3N 21:46
PROVIDERS: ADMIT Allergy & Immunology; ATTEND Allergy & Immunology
PROC: HZ2ZZZZ Detoxification Services for Substance Abuse Treatment (ICD-10-PCS; principal; 2019-04-11)
DX: F10.230 Alcohol dependence with withdrawal, uncomplicated (principal); F13.230 Sedative, hypnotic or anxiolytic dependence with withdrawal, uncomplicated; F11.20 Opioid dependence, uncomplicated; F17.210 Nicotine dependence, cigarettes, uncomplicated; F19.24 Other psychoactive substance dependence with psychoactive substance-induced mood disorder; F32.9 Major depressive disorder, single episode, unspecified; I10 Essential (primary) hypertension; E78.5 Hyperlipidemia, unspecified; E78.00 Pure hypercholesterolemia, unspecified; G62.9 Polyneuropathy, unspecified; E11.9 Type 2 diabetes mellitus without complications; Z79.84 Long term (current) use of oral hypoglycemic drugs; I69.820 Aphasia following other cerebrovascular disease; I69.851 Hemiplegia and hemiparesis following other cerebrovascular disease affecting right dominant side; R94.5 Abnormal results of liver function studies; R26.89 Other abnormalities of gait and mobility; Z99.89 Dependence on other enabling machines and devices; Z91.19 Patient's noncompliance with other medical treatment and regimen
CPT/HCPCS: 36415; 82962; 86593; 93005; 93010; J0735

== ENCOUNTER 2019-04-11 13:14 | Emergency (ER) | payer OTHER ==
[2019-04-11 13:56] VITALS: BMI 28.3
[2019-04-11 14:23] VITALS: BP 186/84; PULSE 52; TEMP 97.4
--- NOTE | 2019-04-11 14:28 | PDOC ---
History of Present Illness - General Chief Complaint: Injury Stated Complaint: Injury Time Seen by Provider: 04/11/19 13:43 History Source: Patient Exam Limitations: No Limitations - History of Present Illness Initial Comments: 04/11/19 15:07 Edwin Lara is a 53M with PMH alcohol and cocaine use disorder, 2x prior CVA, HTN, T2DM, HLD, anemia, and neuropathy presenting from [facility] with head injury yesterday. Per [facility] note, patient had a head trauma yesterday, presented to [facility] today, admitted for detox. Has a history of 2 prior strokes, is not on anticoagulation. Has slurred speech and is otherwise a poor historian. When asked about injury, patient gives his story but is difficult to understand due to slurred speech. Confirms that the injury happened yesterday. Past History - Past Medical History Allergies/Adverse Reactions: Allergies Allergy/AdvReac Type Severity Reaction Status Date / Time No Known Allergies Allergy Verified 04/15/17 20:14 Home Medications: Ambulatory Orders Aspirin [ASA -] 81 mg PO DAILY 04/15/17 cloNIDine HCL [Catapres -] 0.3 mg PO DAILY 04/15/17 metFORMIN HCL [Glucophage -] 1,000 mg PO BID 04/15/17 Insulin Glargine,Hum.rec.anlog [Basaglar Kwikpen U-100] 100 unit SQ ACHS Methadone (Detox) [Dolophine -] 100 mg PO DAILY 04/11/19 Anemia: Yes Asthma: No Cancer: No Cardiac Disorders: No CVA: No COPD: Yes CHF: No Dementia: No Diabetes: Yes GI Disorders: No Disorders: No HTN: Yes Hypercholesterolemia: Yes Kidney Stones: No Liver Disease: No Seizures: Yes Thyroid Disease: No - Surgical History Abdominal Surgery: No Appendectomy: No Cardiac Surgery: No Cholecystectomy: No Lung Surgery: No Neurologic Surgery: No Orthopedic Surgery: No - Reproductive History Testicular Surgery: No - Psycho Social/Smoking Cessation Hx Smoking History: Current every day smoker Have you smoked in the past 12 months: Yes Number of Cigarettes Smoked Daily: 5 Cigars Per Day: 0 Information on smoking cessation initiated: No 'Breaking Loose' booklet given: 04/15/17 Hx Alcohol Use: Yes Drug/Substance Use Hx: Yes Substance Use Type: Alcohol, Cocaine, Heroin, Tranquilizers Hx Substance Use Treatment: Yes (2014BAS) Review of Systems - Review of Systems Able to Perform ROS?: Yes ( slurred speech) Constitutional: No: Chills, Fever HEENTM: Yes: Other (injury to face). No: Recent change in vision, Throat Pain, Throat Swelling, Difficulty Swallowing Respiratory: No: Cough, Shortness of Breath Cardiac (ROS): No: Chest Pain, Palpitations ABD/GI: No: Constipated, Diarrhea, Nausea, Vomiting : No: Symptoms Reported Musculoskeletal: No: Symptoms Reported Integumentary: Yes: Lesions (face) Neurological: Yes: Headache. No: Numbness, Paresthesia, Weakness, Unsteady Gait , Dizziness Endocrine: No: Symptoms Reported Hematologic/Lymphatic: No: Symptoms Reported All Other Systems: Reviewed and Negative *Physical Exam - Vital Signs Last Vital Signs Temp Pulse Resp BP Pulse Ox 97.4 F L 52 L 18 186/84 H 98 04/11/19 13:14 04/11/19 13:14 04/11/19 13:14 04/11/19 13:46 04/11/19 13:14 - Physical Exam General Appearance: Yes: Nourished, Appropriately Dressed, Intoxicated (clearly somnolent), Other (somnolent appearing, responds to voice and quickly becomes alert with voice, follows commands appropriately). No: Apparent Distress, Alcohol on Breath HEENT: positive: EOMI, MARSHA, Other (no jaundice, no tongue deviation or tremors) . negative: Normal Voice (heavily slurred speech, comprehensible in single words, no evidence of aphasia but notable dysarthria), Pharynx Normal (poor dentition, oropharynx is dry with some crusting around the lips), Scleral Icterus (R), Scleral Icterus (L), Muffled/Hoarse voice Neck: positive: Supple. negative: Tender, Rigid, Decreased range of motion, Stridor, Lymphadenopathy (R), Lymphadenopathy (L) Respiratory/Chest: positive: Lungs Clear, Normal Breath Sounds. negative: Respiratory Distress, Accessory Muscle Use, Decreased Breath Sounds, Crackles, Rales, Rhonchi Cardiovascular: positive: Regular Rhythm, Regular Rate Vascular Pulses: Dorsalis-Pedis (R): 2+, Doralis-Pedis (L): 2+ Gastrointestinal/Abdominal: positive: Normal Bowel Sounds, Flat, Soft. negative : Tender, Guarding, Rebound Musculoskeletal: positive: Normal Inspection. negative: CVA Tenderness Extremity: positive: Normal Capillary Refill, Normal Inspection, Normal Range of Motion. negative: Tender Integumentary: positive: Normal Color, Dry, Warm Neurologic: positive: Normal Mood/Affect, Normal Response, Motor Strength 5/5, Other (able to ambulate with normal gait, no evidence of tremors or diaphoresis , no fevers). negative: Facial Droop, Sensory Deficit ED Treatment Course - LABORATORY CBC & Chemistry Diagram: 04/11/19 16:20 04/11/19 16:20 Medical Decision Making - Medical Decision Making 04/11/19 15:07 Edwin Lara is a 53M with PMH alcohol and cocaine use disorder, 2x prior CVA, HTN, T2DM, HLD, anemia, and neuropathy presenting from [facility] with head injury yesterday. Patient presentation is concerning for intracranial hemorrhage given that he has a visible right face injury and is unable to articulate what happened effectively. Patient is somnolent and responds to questioning, but has slurred speech and it is unknown if this is his baseline after 2 strokes or is a new abnormality or evidence of intoxication due to an opioid at this time. Patient is able to follow commands well and has comprehension of what is being told to him. Has no evidence of tremors or diaphoresis consistent with alcohol withdrawal. Getting a CT head and BGM to evaluate for head injury and possible hypoglycemia as the cause for his somnolence. 04/11/19 15:45 Labs drawn to r/o liver pathology as cause of AMS given history of alcohol use Not in withdrawal at this time CT head read: [id number] volume loss and suggestion of minimal periventricular chronic microvascular ischemic disease changes. Otherwise, no gross CT evidence of acute intracranial pathology is identified. The calvarium is intact. Correlate clinically to determine further evaluation and follow-up. 04/11/19 18:45 Labs show Cr 0.6, normal LFTs UA + for glucose, known history of T2DM Utox positive for benzos, opioids, methadone Ammonia 16.2, no evidence of asterixis, spider angiomas, ascites on exam Patient is resting comfortably in bed, in no acute distress Observed walking to restroom without major difficulty, gait normal. Stable to go back to [facility] by ambulance for detox at this time, no acute intracranial process or metabolic abnormality Discharge - Discharge Information Problems reviewed: Yes Clinical Impression/Diagnosis: Alcohol use disorder, Cocaine use disorder Facial abrasion Qualifiers: Encounter type: subsequent encounter Qualified Code(s): S00.81XD - Abrasion of other part of head, subsequent encounter Condition: Stable Disposition: TRANSFER ACUTE CARE/OTHER HOSP - Admission No - Follow up/Referral - Patient Discharge Instructions Additional Instructions: Today you were evaluated for a head injury. We performed a CT scan of your head that does not show any signs of injury or brain bleed. Your blood labs do not show any abnormalities, and we gave you a liter of IV fluids. In the future, please be mindful of falling or hitting your head. Please report to [facility] for detox. If you experience any nausea, vomiting, dizziness, chest pain, shortness of breath, seizures, tremors, excessive sweating, or any other new or concerning symptoms, please return to the closest emergency room. - Post Discharge Activity
[2019-04-11] MEDS ORDERED: SODIUM CHLORIDE 0.9% 500 ML INFUS.BAG IV ONE (15:37)
[2019-04-11 16:37] LABS: BASO % 0.2 % (0-2.0); EOS % 2.6 % (0-4.5); HEMOGLOBIN 11.6 GM/dL (11.7-16.9); LYMPH % 43.7 % (8-40); MCH 27.6 pg (25.7-33.7); MCHC 32.3 g/dl (32.0-35.9); MEAN CELL VOLUME 85.3 fl (80-96); MEAN PLT VOLUME 6.6 fl (7.5-11.1); MONO % 5.9 % (3.8-10.2); NEUT % 47.6 % (42.8-82.8); PLATELET COUNT 272 K/MM3 (134-434); RBC 4.22 M/mm3 (4.00-5.60); RDW 14.2 % (11.9-15.9); WHITE BLOOD COUNT 4.8 K/mm3 (4.0-10.0)
--- NOTE | 2019-04-11 16:37 | PDOC ---
Attending Attestation - Resident Resident Name: José Miguel Mcmahon - ED Attending Attestation I have performed the following: I have examined & evaluated the patient, The case was reviewed & discussed with the resident, I agree w/resident's findings & plan, Exceptions are as noted - HPI HPI: 04/11/19 16:33 Patient is a 53-year-old male with history of polysubstance abuse, CVA x2, diabetes, polyneuropathy who was referred from [facility] detox for right facial and temporal injury sustained 24 hours previously. Patient has severely dysarthric speech and is very difficult to comprehend at baseline. - Physicial Exam PE: 04/11/19 Patient is somnolent but easily arousable to verbal stimuli, follows commands, speech is difficult to comprehend Normocephalic, + ecchymosis and abrasions to the right periorbital area with minimal tenderness on palpation of the right zygoma PERRLA, +limited upward gaze bilaterally CTA Moving all extremities symmetrically, no pronation drift, no asterixis RRR - Medical Decision Making 04/11/19 16:36 Patient's 53-year-old male with multiple committees, history of polysubstance abuse who was referred from [facility] detox for right-sided facial injuries. Will obtain CT of head. Will obtain CBC/CMP/ammonia level/drug screen to evaluate patient's decreased level of consciousness. Will reassess. Likely discharge to [facility]
[2019-04-11 17:11] LABS: ALBUMIN 3.2 g/dl (3.4-5.0); BILIRUBIN,TOTAL 0.2 mg/dL (0.2-1); BLOOD UREA NITROGEN 8.2 mg/dL (7-18); CALCIUM 9.1 mg/dL (8.5-10.1); CREATININE 0.6 mg/dL (0.55-1.3); POTASSIUM 4.6 mmol/L (3.5-5.1); TOT PROT 7.8 g/dl (6.4-8.2)
[2019-04-11 17:48] LABS: PH,URINE 6.5 (5.0-8.0); URINE APPEARANCE CLEAR; URINE BILIRUBIN NEGATIVE (NEGATIVE); URINE COLOR YELLOW; URINE GLUCOSE (UA) 3+ (NEGATIVE); URINE KETONE NEGATIVE (NEGATIVE); URINE LEUK ESTERASE NEGATIVE (NEGATIVE); URINE NITRITE NEGATIVE (NEGATIVE); URINE PROTEIN NEGATIVE (NEGATIVE); URINE UROBILINOGEN 0.2 mg/dL (0.2-1.0)
[2019-04-11 18:22] LABS: COCAINE, UR NEGATIVE ng/ml (CUTOFF=300); PHENCYCLIDINE,URINE NEGATIVE ng/ml (CUTOFF=25); URINE AMPHETAMINES NEGATIVE ng/ml (CUTOFF=500); URINE BARBITURATES NEGATIVE ng/ml (CUTOFF=200)
[2019-04-11 18:24] LABS: OPIATES, URI POSITIVE ng/ml (CUTOFF=300); URINE BENZODIAZEPINES POSITIVE ng/ml (CUTOFF=200)
[2019-04-11 18:25] LABS: METHADONE, UR POSITIVE ng/ml (CUTOFF=300)
== END 2019-04-11 20:16 | disposition short-term general hospital (02) ==
LOC: JER 13:14
PROC: 3E0337Z Introduction of Electrolytic and Water Balance Substance into Peripheral Vein, Percutaneous Approach (ICD-10-PCS; principal; 2019-04-11)
DX: S00.81XA Abrasion of other part of head, initial encounter (principal); F10.99 Alcohol use, unspecified with unspecified alcohol-induced disorder; F14.90 Cocaine use, unspecified, uncomplicated; X58.XXXA Exposure to other specified factors, initial encounter; Y93.9 Activity, unspecified; Y92.238 Other place in hospital as the place of occurrence of the external cause; I10 Essential (primary) hypertension; E11.9 Type 2 diabetes mellitus without complications; E78.5 Hyperlipidemia, unspecified; D64.9 Anemia, unspecified; G62.9 Polyneuropathy, unspecified; F17.210 Nicotine dependence, cigarettes, uncomplicated; R56.9 Unspecified convulsions
CPT/HCPCS: 36415; 70450-TC; 80053; 80307; 81003; 82140; 82550; 82553; 82962; 84484; 85025; 87086; 96360; 99283-25